=== PATIENT | male | born 1985 | race Caucasian/White ===

== ENCOUNTER 2022-09-29 16:55 | Inpatient (IN) | payer BC, SELFPAY ==
[2022-09-29] VITALS (8 sets, daily range): BP systolic 109–153; BP diastolic 72–100; PULSE 92–115; RESP 19–31; TEMP 36.6–37.3; O2SAT 83–97; BMI 38.7; BMI 37.0
--- NOTE | 2022-09-29 16:51 | ECG_ITS ---
APPROVED REPORT Exam: Resting ECG HR:112 bpm ECG Measurements Heart Rate 112 AXES MA 126 P 7 QRSd 86 QRS -20 QT 311 T 45 QTc 377 Conclusion SINUS TACHYCARDIA ABNORMAL RHYTHM ECG UNCONFIRMED REPORT Electronically signed by : En Russell MD 10/01/2022 14:24:24
--- NOTE | 2022-09-29 17:05 | XR_ITS ---
PROCEDURE INFORMATION: Exam: XR Chest Exam date and time: 09/29/2022 5:33 PM Age: 37 years old Clinical indication: Shortness of breath; Additional info: SOA TECHNIQUE: Imaging protocol: Radiologic exam of the chest. Views: 1 view. COMPARISON: No relevant prior studies available. FINDINGS: Lungs: Focal region of opacification right perihilar region with extension into the right lower lobe. Masslike configuration. Pleural spaces: Unremarkable. No pleural effusion. No pneumothorax. Heart/Mediastinum: Unremarkable. No cardiomegaly. Bones/joints: Unremarkable. IMPRESSION: Right perihilar and lower lobe infiltrate. Could not exclude an underlying mass. Follow-up with computerized tomography with contrast recommended.
[2022-09-29 17:26] LABS: Alanine Aminotransferase 21 U/L (12-78); Albumin Level 4.3 g/dl (3.5-5.0); Albumin/Globulin Ratio 1.4 (1.1-1.8); Alkaline Phosphatase 96 U/L (38-126); Anion Gap 8.6 mEq/L (5-15); Aspartate Amino Transferase 30 U/L (17-59); Bilirubin,Total 0.6 mg/dl (0.2-1.3); Blood Urea Nitrogen 13 mg/dl (9-20); Calcium 8.4 mg/dl (8.4-10.2); Carbon Dioxide 40 mmol/L (22.0-30.0); Chloride 92 mmol/L (98-107); Creatinine Clearance Estimated 215 mL/min (50-200); Estimated Glomerular Filt Rate 108 ml/min (>60); GFR (African American) 130 ML/MIN (>60); Glucose 136 mg/dl (74-100); Potassium 4.6 mmoL/L (3.5-5.1); Sodium 136 mmol/L (136-145); Total Protein,Serum 7.3 g/dl (6.3-8.2)
[2022-09-29 17:31] LABS: D-Dimer 0.94 ug/mL (0.0-0.5)
--- NOTE | 2022-09-29 17:31 | HMH.EDGENADL ---
Discharge Plan Disposition Chief Complaint: Shortness of Breath/Dyspnea Referrals Follow up/Referrals: Provider,Referral, [Primary Care Provider] - See instructions Clinical Impressions Clinical Impression: Acute hypoxemic respiratory failure, Community acquired pneumonia of right middle lobe of lung Discharge ED Provider: Jeferson Lozada General Adult HPI General Chief complaint: Shortness of Breath/Dyspnea Stated complaint: SOA Time Seen by Provider: 09/29/22 17:00 History of Present Illness HPI narrative: This is a 37-year-old male with history of IV drug abuse currently in therapy, cirrhosis presenting with shortness of breath. Per patient and visitor, patient began complaining of chest pain 3 days prior to arrival. Was taking aspirin. Since that time, patient been complaining of progressive shortness of breath. Today, just prior to arrival, patient was altered, not making sense, not redirectable. EMS was called. Patient was brought to the ER for further evaluation. Patient complaining of shortness of breath, mild chest pain, abdominal distention, but denies fevers, chills, diarrhea, constipation, vomiting, or any other concerns. Related Data Allergies Allergy/AdvReac Type Severity Reaction Status Date / Time No Known Allergies Allergy Verified 09/29/22 17:15 [facility] Disclaimer: The information contained in this section may have been updated after the patient was seen, as this information can be updated by other users. Medical History Hepatitis C IVDU (intravenous drug user) Smoker Social History Smoking Status: Never smoker alcohol intake: former current occupational status: unemployed Travel in the last 8 weeks: None ROS Obtained: Yes All systems reviewed & no additional complaints except as documented Physical Exam General General appearance: alert and other (appears ill) Head Head exam: atraumatic, normocephalic and normal inspection Eye Eye exam: Present normal appearance, PERRL and EOMI ENT ENT exam: Present normal exam, normal oropharynx, mucous membranes moist, TM's normal bilaterally and normal external ear exam Neck Neck exam: Present normal inspection, full ROM and trachea midline; Absent meningismus or lymphadenopathy Chest Chest inspection: Present normal inspection and symmetric chest wall rise; Absent tenderness Respiratory Respiratory exam: Present respiratory distress, wheezes and prolonged expiratory phase; Absent normal lung sounds bilaterally Cardiovascular Cardiovascular exam: Present regular rate and normal rhythm; Absent JVD Abdominal Exam Abdominal exam: Present soft, distention and normal bowel sounds; Absent tenderness, guarding or rebound Extremities Exam Extremities exam: Present normal inspection, full ROM and normal capillary refill; Absent calf tenderness Back Exam Back exam: Present normal inspection; Absent tenderness Neurological Exam Neurological exam: Present alert and oriented X3 Psychiatric Psychiatric exam: Present normal affect and normal mood Skin Skin exam: Present warm, dry, intact and normal color Lymphatic Lymphatic Findings: no adenopathy Medical Decision Making Medical Records Medical records reviewed: Yes I reviewed the patient's medical records. [place] Inquiry Pt receiving controlled substance: No Vital Signs: 09/29/22 16:55 09/29/22 18:00 Temperature 99.1 F Temperature Source Oral Pulse Rate 106 H Pulse Rate [Left Radial] 115 H Respiratory Rate 26 H 20 Blood Pressure 128/72 Blood Pressure [Right Arm] 153/100 H Blood Pressure Mean 92 Blood Pressure Mean [Right Arm] 117 Blood Pressure Source [Right Arm] Automatic Cuff Blood Pressure Position [Right Arm] Sitting 02 Sat by Pulse Oximetry 83 L 94 L Oxygen Delivery Method Room Air Lab Data Lab Results 09/29/22 16:56: WBC 23.9 H*, RBC 5.07, Hgb 14.7, Hct 44.9, MCV 88.5, MCH 28.9, MCHC 32.7, RDW 14.1, Plt Count 276, MPV 8.0, Neut % (Auto) 89.2 H, Lymp
[2022-09-29 17:34] LABS: Basophils # 0.1 K/mm3 (0-0.2); Basophils % 0.2 % (0.1-2.0); Eosinophils # 0.2 K/mm3 (0.0-0.4); Eosinophils % 0.7 % (0.1-12.0); Hematocrit 44.9 % (42.0-52.0); Hemoglobin 14.7 g/dL (14.1-18.0); Lymphocytes % 3.9 % (10-50); Mean Corpuscular HGB Conc 32.7 g/dL (31.8-35.4); Mean Corpuscular Hemoglobin 28.9 pg (27.0-31.2); Mean Corpuscular Volume 88.5 fl (80-94); Monocytes # 1.4 K/mm3 (0.1-1.0); Neutrophils # 21.3 K/mm3 (1.8-7.8); Neutrophils % 89.2 % (37.0-80.0); Platelet Count 276 K/mm3 (142-424); Red Blood Count 5.07 M/mm3 (4.60-6.20); Red Cell Distribution Width 14.1 % (11.5-17.5); White Blood Count 23.9 K/mm3 (4.8-10.8)
[2022-09-29 17:37] LABS: Lactic Acid 1.7 mmol/L (0.7-2.1)
[2022-09-29 17:38] LABS: MANUAL DIFFERENTIAL MANUAL DIFFERENTIAL (MANUAL DIFF)
[2022-09-29 17:39] LABS: Troponin I 0.03 ng/ml (0.00-0.034)
--- NOTE | 2022-09-29 17:49 | CT_ITS ---
PROCEDURE INFORMATION: Exam: CTA Chest With Contrast Exam date and time: 09/29/2022 7:03 PM Age: 37 years old Clinical indication: Abnormal findings; Abnormal diagnostic tests; Elevated d-dimer; Patient HX: D-dimer .97; Additional info: Acute SOA and cp TECHNIQUE: Imaging protocol: Computed tomographic angiography of the chest with contrast. 3D rendering (Not supervised by radiologist): MIP and/or 3D reconstructed images were created by the technologist. Radiation optimization: All CT scans at this facility use at least one of these dose optimization techniques: automated exposure control; mA and/or kV adjustment per patient size (includes targeted exams where dose is matched to clinical indication); or iterative reconstruction. Contrast material: ISOVUE 370; Contrast volume: 70 ml; Contrast route: INTRAVENOUS (IV); REPORTING DATA: Count of CT and Cardiac NM exams in prior 12 months: This patient has received 0 known CTs and 0 known cardiac nuclear medicine studies in the 12 months prior to the current study. COMPARISON: CR XR CHEST PORTABLE 09/29/2022 5:33 PM FINDINGS: Pulmonary arteries: There is suboptimal opacification of pulmonary arteries due to contrast bolus timing. Aorta: Unremarkable. No aortic aneurysm. No aortic dissection. Lungs: Patchy regions of slightly nodular ground-glass consolidation involving the right lower lobe, middle lobe and to a lesser extent the right upper lobe. Superimposed right hilar adenopathy with stenosis of the right main bronchus. Findings suboptimally demonstrated. Pleural spaces: Minimal pleural reactive changes posteriorly and laterally in the left lung with small amount of fluid extending into the major fissure. Heart: Unremarkable. No cardiomegaly. No pericardial effusion. Coronary arteries: No evidence of coronary artery calcification. Lymph nodes: Calcified and noncalcified right perihilar lymph nodes. Nonspecific mediastinal lymph nodes and paratracheal in lymph nodes partially visualized. Splenic granuloma Bones/joints: Unremarkable. No acute fracture. Soft tissues: Unremarkable. IMPRESSION: 1. No large or central pulmonary embolus. Evaluation of the peripheral pulmonary arteries is limited. 2. Patchy slightly nodular ground-glass regions of consolidation throughout the right lung most pronounced involving the right lower and middle lobes. Superimposed mediastinal and right hilar lymphadenopathy. Findings may reflect an infectious process such as pneumonia. Atypical pneumonia as well as malignancy should be considered. 3. Mediastinal and right hilar adenopathy. Findings may be secondary to an infectious etiology. Malignancy could not be excluded.
[2022-09-29 17:52] LABS: ABG Base Excess 8.9 mmol/L (-2.4-2.3); ABG HCO3 35.4 mmhg (22.0-26.0); ABG Oxygen Saturation 93 % (90-100); ABG PO2 64.7 mmhg (80-100); ABG TCO2 37.7 mmhg (23-27)
[2022-09-29 17:56] LABS: ABG PCO2 74.3 mmhg (35.0-45.0); Allen's Test Acceptable; Oxygen 3LPM %; Source Left Radial
[2022-09-29 18:24] LABS: Coronavirus 19, PCR Not Detected (NotDetected); Influenza A, PCR Not Detected (NotDetected); Influenza B, PCR Not Detected (NotDetected)
--- NOTE | 2022-09-29 18:29 | PC.NURSE ---
Dr Lozada speaking to Hospitalist
--- NOTE | 2022-09-29 18:57 | PC.NURSE ---
PT GOING TO CT
[2022-09-29 19:09] LABS: Lymphocytes % 2 % (10-50); Monocytes % 9 % (2-9); Neutrophils % 89 % (42-76); Platelet Estimate Normal; Stomatocytes 1+; Total Cells Counted 100
--- NOTE | 2022-09-29 19:55 | EXP.HP ---
History of Present Illness *Admission Date: 09/29/22 *Reason for visit:: Shortness of air, chest pain, confusion *History of present illness: Mr. Jaylen Adan is a 37-year-old male with a past medical history of IVDU reports methamphetamines and opiates, Anxiety Disorder and chronic tobacco abuse. He presented to [facility] due to a 3-day history of chest pain and cough and 1-day history of confusion. Per patient and friend at bedside the patient is in drug rehab, friend reports that he went to see him today and he was lethargic and confused, he was concerned that he had relapsed, so he called 911 and he was brought into the ER for evaluation. In the ER, chest xray showed right perihilar and lower lobe infiltrates. ABG showed pH 7.30, PCO2 74.3, pO2 63.7, SpO2 on 32%. CBC showed WBC of 23.9, CMP was unremarkable. Lactic Acid was 1.7. Covid and Flu were negative. EKG showed Sinus Tachycardia with rate of 112. The patient was admitted with initial impression: Sepsis, Acute Hypoxic and Hypercapnic Respiratory Failure and Community Acquired Pnuemoia. In the ER, the patient was placed on BIPAP, given Rocephin, Azithromycin and Ativan. [facility] Disclaimer: The information contained in this section may have been updated after the patient was seen, as this information can be updated by other users. Medical History Bipolar 1 disorder Depression Hepatitis C Hypertension IVDU (intravenous drug user) Smoker Social History Smoking Status: Never smoker alcohol intake: former current occupational status: unemployed Travel in the last 8 weeks: None Review of Systems Review of Systems Review of systems:: pertinent systems reviewed and negative unless documented below Constitutional Constitutional: Reports system reviewed and no additional complaints, except as documented Eyes Eyes: Reports system reviewed and no additional complaints, except as documented ENT Ears, Nose, Mouth, and Throat: Reports system reviewed and no additional complaints, except as documented *Cardiovascular Cardiovascular: Reports chest pain and Reports dyspnea *Respiratory Respiratory: Reports cough, Reports dyspnea and Reports excessive phlegm production *Gastrointestinal Gastrointestinal: Reports system reviewed and no additional complaints, except as documented *Genitourinary Genitourinary: Reports system reviewed and no additional complaints, except as documented *Musculoskeletal Musculoskeletal: Reports system reviewed and no additional complaints, except as documented Integumentary/Breasts Skin/Breast: Reports system reviewed and no additional complaints, except as documented *Neurologic Neurologic: Reports system reviewed and no additional complaints, except as documented Psychiatric Psychiatric: Reports system reviewed and no additional complaints, except as documented Endocrine Endocrine: Reports system reviewed and no additional complaints, except as documented Hematologic/Lymphatic Hematologic/Lymphatic: Reports system reviewed and no additional complaints, except as documented Allergic/Immunologic Allergic/Immunologic: Reports system reviewed and no additional complaints, except as documented Meds Home Medications and Allergies Home Medications Medication Instructions Recorded Confirmed Type albuterol sulfate 90 mcg/actuation 2 puff inhalation Q4HP PRN 09/29/22 09/30/22 History aerosol inhaler Shortness of air buprenorphine 2 mg-naloxone 0.5 mg 2 tab sublingual DAILY WITHDRAWAL 09/29/22 09/30/22 History sublingual tablet PREVENTION buprenorphine 8 mg-naloxone 2 mg 2 tab sublingual DAILY WITHDRAWAL 09/29/22 09/30/22 History sublingual tablet PREVENTION carvedilol 3.125 mg tablet 3.125 mg PO BID High blood pressure 09/29/22 09/30/22 History clonazepam 1 mg tablet 2 mg PO BID Anxiety 09/29/22 09/30/22 History folic acid 1 mg tablet 1 mg PO DAILY Supplem
--- NOTE | 2022-09-29 20:39 | PC.NURSE ---
Report called to [facility] for stepdown unit-- Patient requesting his Suboxone and Klonopin which he takes at home. I explained to patient the inpatient provider will need to complete a med rec with him and then they would be able to order his home medications.
[2022-09-29 20:41] LABS: Troponin I 0.03 ng/ml (0.00-0.034)
--- NOTE | 2022-09-29 21:03 | PC.NURSE ---
Pt. arrived to floor by wheelchair at 21:00.
[2022-09-29 23:02] LABS: ABG Base Excess 10.6 mmol/L (-2.4-2.3); ABG HCO3 36.5 mmhg (22.0-26.0); ABG Oxygen Saturation 95 % (90-100); ABG PH 7.33 mmol/L (7.35-7.45); ABG PO2 70.6 mmhg (80-100); ABG TCO2 38.7 mmhg (23-27)
[2022-09-29 23:04] LABS: Oxygen 40 %
[2022-09-29 23:05] LABS: Allen's Test Acceptable; Source Left Radial
[2022-09-29 23:07] LABS: ABG PCO2 70.5 mmhg (35.0-45.0)
[2022-09-29 23:33] LABS: Troponin I 0.02 ng/ml (0.00-0.034)
[2022-09-30] VITALS (13 sets, daily range): BP systolic 91–145; BP diastolic 68–97; PULSE 77–96; RESP 20–27; TEMP 36.7–37.1; O2SAT 82–97; BMI 37.1
--- NOTE | 2022-09-30 01:17 | PC.NURSE ---
2 inhalers locked in physical medicine specialist room upon admission. pt denies having any other home medications
[2022-09-30 05:20] LABS: Barbiturates Screen,Urine Negative ng/ml (<200)
[2022-09-30 05:21] LABS: Benzodiazepines Screen,Urine Positive ng/ml (<200)
[2022-09-30 05:22] LABS: Amphetamine/Metha Screen,Urine Negative ng/ml (<1000); Cannabinoid Screen,Urine Negative ng/ml (<50)
[2022-09-30 05:23] LABS: Cocaine Screen,Urine Negative ng/ml (<300)
[2022-09-30 05:24] LABS: Methadone Screen,Urine Negative ng/ml (<300); Opiate Screen,Urine Negative ng/ml (<300)
[2022-09-30 05:25] LABS: Phencyclidine Screen,Urine Negative ng/ml (<25)
[2022-09-30 06:03] LABS: ABG Base Excess 9.4 mmol/L (-2.4-2.3); ABG HCO3 35.6 mmhg (22.0-26.0); ABG Oxygen Saturation 96 % (90-100); ABG PH 7.32 mmol/L (7.35-7.45); ABG PO2 78.2 mmhg (80-100); ABG TCO2 37.7 mmhg (23-27)
[2022-09-30 06:04] LABS: Allen's Test Acceptable; Source Left Radial; Vent Rate 20
[2022-09-30 06:06] LABS: ABG PCO2 71.1 mmhg (35.0-45.0)
[2022-09-30 06:16] LABS: Basophils % 0.2 % (0.1-2.0); Eosinophils # 0.1 K/mm3 (0.0-0.4); Eosinophils % 0.5 % (0.1-12.0); Hematocrit 40.9 % (42.0-52.0); Hemoglobin 13.3 g/dL (14.1-18.0); Lymphocytes % 9.8 % (10-50); Mean Corpuscular HGB Conc 32.4 g/dL (31.8-35.4); Mean Corpuscular Hemoglobin 28.5 pg (27.0-31.2); Mean Corpuscular Volume 87.8 fl (80-94); Mean Platelet Volume 7.7 fl (7.4-10.4); Monocytes % 5.2 % (1.7-9.3); Neutrophils # 16.7 K/mm3 (1.8-7.8); Neutrophils % 84.1 % (37.0-80.0); Platelet Count 238 K/mm3 (142-424); Red Blood Count 4.66 M/mm3 (4.60-6.20); White Blood Count 19.9 K/mm3 (4.8-10.8)
[2022-09-30 06:21] LABS: MANUAL DIFFERENTIAL MANUAL DIFFERENTIAL (MANUAL DIFF)
[2022-09-30 06:27] LABS: Chloride 95 mmol/L (98-107)
[2022-09-30 06:28] LABS: Potassium 3.9 mmoL/L (3.5-5.1); Sodium 135 mmol/L (136-145)
[2022-09-30 06:30] LABS: Alanine Aminotransferase 16 U/L (12-78); Albumin Level 3.7 g/dl (3.5-5.0); Albumin/Globulin Ratio 1.3 (1.1-1.8); Alkaline Phosphatase 78 U/L (38-126); Aspartate Amino Transferase 24 U/L (17-59); Bilirubin,Total 0.7 mg/dl (0.2-1.3); Blood Urea Nitrogen 11 mg/dl (9-20); Calcium 8.4 mg/dl (8.4-10.2); Creatinine Clearance Estimated 236 mL/min (50-200); Estimated Glomerular Filt Rate 126 ml/min (>60); GFR (African American) 152 ML/MIN (>60); Globulin 2.8 g/dL (1.3-3.2); Glucose 103 mg/dl (74-100); Total Protein,Serum 6.5 g/dl (6.3-8.2)
[2022-09-30 06:31] LABS: Magnesium 2.2 mg/dl (1.6-2.3)
[2022-09-30 06:38] LABS: Anion Gap 7.9 mEq/L (5-15); Carbon Dioxide 36 mmol/L (22.0-30.0)
--- NOTE | 2022-09-30 06:45 | PC.NURSE ---
ABG results reported to Thaddeus Lane NP, BIPAP settings adjusted by RT.. 20/6 FIO2 45% RR 26.
[2022-09-30 07:53] LABS: Bordetella Pertussis Not Detected (NotDetected); Chlamydophila Pneumoniae, PCR Not Detected (NotDetected); Coronavirus 19, PCR Not Detected (NotDetected); Coronavirus 229E Not Detected (NotDetected); Coronavirus NL63 Not Detected (NotDetected); Coronavirus OC43 Not Detected (NotDetected); Coronovirus HKU1,PCR Not Detected (NotDetected); Human Metapneumovirus Not Detected (NotDetected); Influenza A, PCR Not Detected (NotDetected); Influenza AH1, 2009 Not Detected (NotDetected); Influenza AH1, PCR Not Detected (NotDetected); Influenza AH3,PCR Not Detected (NotDetected); Influenza B, PCR Not Detected (NotDetected); Mycoplasma Pneumoniae, PCR Not Detected (NotDetected); Parainfluenza 1, PCR Not Detected (NotDetected); Parainfluenza 2, PCR Not Detected (NotDetected); Parainfluenza 3, PCR Not Detected (NotDetected); Parainfluenza 4, PCR Not Detected (NotDetected); Respiratory Syncytial Virus Not Detected (NotDetected); Rhinovirus/Enterovirus Not Detected (NotDetected)
[2022-09-30 08:19] LABS: Lymphocytes % 11 % (10-50); Monocytes % 6 % (2-9); Neutrophils % 83 % (42-76); Platelet Estimate Normal; RBC Morphology Normal; Total Cells Counted 100
--- NOTE | 2022-09-30 08:41 | HMH.PHAINT1 ---
Pharmacy Intervention Comments: Reconciled patient's home medications using pharmacy fill history and patient interview.
[2022-09-30 09:38] LABS: Adenovirus,PCR Detected (NotDetected)
--- NOTE | 2022-09-30 09:38 | EXP.PULM.CON ---
History of Present Illness History of present illness: Mr. Adan is a 37-year-old male history of IV drug abuse presented with 3-day history of worsening chest pain cough and confusion apparently was called for further evaluation. [facility] Disclaimer: The information contained in this section may have been updated after the patient was seen, as this information can be updated by other users. Medical History Bipolar 1 disorder Depression Hepatitis C Hypertension IVDU (intravenous drug user) Smoker Social History Smoking Status: Never smoker alcohol intake: former current occupational status: unemployed Travel in the last 8 weeks: None Review of Systems Constitutional Constitutional: Reports anorexia and Reports body ache(s) Eyes Eyes: Denies eye discharge, Denies dry eyes, Denies irritation and Denies itchy eyes ENT Ears, Nose, Mouth, and Throat: Denies epistaxis, Denies facial pain, Denies lip swelling and Denies throat swelling *Cardiovascular Cardiovascular: Reports dyspnea and Reports dyspnea on exertion *Respiratory Respiratory: Reports chest congestion, Reports cough, Reports dyspnea, Reports dyspnea on exertion, Reports excessive phlegm production and Denies wheezing *Gastrointestinal Gastrointestinal: Denies abdominal pain, Denies belching and Denies cramping *Musculoskeletal Musculoskeletal: Reports back pain, Reports myalgias and Reports other (No small joint swelling or Pain) *Neurologic Neurologic: Reports system reviewed and no additional complaints, except as documented Psychiatric Psychiatric: Denies homicidal ideation and Denies suicidal ideation Endocrine Endocrine: Denies heat intolerance Hematologic/Lymphatic Hematologic/Lymphatic: Denies easy bleeding and Denies lymphadenopathy Allergic/Immunologic Allergic/Immunologic: Denies itchy eyes, Denies lip swelling, Denies throat swelling and Denies wheezing Pulmonology Exam Inpatient Vital signs and Labs for Last 24 Hours: Temp Pulse Resp BP Pulse Ox FiO2 98.7 F 78 26 H 91/68 L 97 45 09/30/22 08:00 09/30/22 08:00 09/30/22 08:00 09/30/22 08:00 09/30/22 08:00 09/30/22 08:00 Laboratory Results - last 24 hr 09/29/22 16:56: WBC 23.9 H*, RBC 5.07, Hgb 14.7, Hct 44.9, MCV 88.5, MCH 28.9, MCHC 32.7, RDW 14.1, Plt Count 276, MPV 8.0, Neut % (Auto) 89.2 H, Lymph % (Auto) 3.9 L, [place] % (Auto) 6.0, Eos % (Auto) 0.7, Baso % (Auto) 0.2, Neut # (Auto) 21.3 H, Lymph # (Auto) 1.0, [place] # (Auto) 1.4 H, Eos # (Auto) 0.2, Baso # (Auto) 0.1, Total Counted 100, Neutrophils % (Manual) 89 H, Lymphocytes % (Manual) 2 L, Monocytes % (Manual) 9, Platelet Estimate Normal, Stomatocytes 1+ 09/29/22 16:56: Sodium 136, Potassium 4.6, Chloride 92 L, Carbon Dioxide 40 H, Anion Gap 8.6, BUN 13, Creatinine 0.80, Estimated Creat Clear 215, Estimated GFR 108, Est GFR ( Amer) 130, Glucose 136 H, Calcium 8.4, Total Bilirubin 0.6, AST 30, ALT 21, Alkaline Phosphatase 96, Troponin I 0.03, Total Protein 7.3, Albumin 4.3, Globulin 3.0, Albumin/Globulin Ratio 1.4 09/29/22 16:56: D-Dimer 0.94 H 09/29/22 16:57: Lactate 1.7 09/29/22 17:05: Specimen Source Left radial, O2 % 3lpm, ABG pH 7.30 L, ABG pCO2 74.3 H, ABG pO2 64.7 L, ABG HCO3 35.4 H, ABG Total CO2 37.7 H, ABG O2 Saturation 93, ABG Base Excess 8.9 H, Franck Test Acceptable 09/29/22 18:10: SARS-CoV-2 (PCR) Not detected, Influenza A Untype (PCR) Not detected, Influenza Type B (PCR) Not detected 09/29/22 20:10: Troponin I 0.03 09/29/22 23:00: Specimen Source Left radial, O2 % 40, ABG pH 7.33 L, ABG pCO2 70.5 H, ABG pO2 70.6 L, ABG HCO3 36.5 H, ABG Total CO2 38.7 H, ABG O2 Saturation 95, ABG Base Excess 10.6 H, Franck Test Acceptable 09/29/22 23:07: Troponin I 0.02 09/30/22 03:25: Urine Opiates Screen Negative, Urine Methadone Screen Negative, Ur Barbituates Screen Negative, Ur Phencyclidine Scrn Negative, Ur Amphetamines Screen Negative, U Benzodiazepines Scrn Positive H, Urine Cocain
--- NOTE | 2022-09-30 10:45 | PC.NURSE ---
ambulated twice around floor with portable o2
--- NOTE | 2022-09-30 11:10 | PC.NURSE ---
Pt is currently sitting on the side of his bed at this time. Has been resistive to care this morning. Pt has threatened to leave AMA multiple times. MD's aware. Pt has been educated by this nurse, Dr. Wilks and Dr. Victor on the risk factors if pt leaves. Pt refused to keep Bipap on. Is currently on 6L O2 NC at this time. Has ambulated in hallway with stand by assist. Nicotine patch placed on pt. Had a sandwhich for a snack. Significant other is at bedside. Pt and her have been arguing. Call light within reach.
--- NOTE | 2022-09-30 14:15 | PC.NURSE ---
Pt left AMA after being educated multiple times by MDs and nurses, the risks involved in leaving.
--- NOTE | 2022-09-30 14:23 | EXP.DC.SUM ---
General Admission date:: 09/29/22 Discharge date: 09/30/22 HPI HPI HPI: Mr. Jaylen Adan is a 37-year-old male with a past medical history of IVDU reports methamphetamines and opiates, Anxiety Disorder and chronic tobacco abuse. He presented to [facility] due to a 3-day history of chest pain and cough and 1-day history of confusion. Per patient and friend at bedside the patient is in drug rehab, friend reports that he went to see him today and he was lethargic and confused, he was concerned that he had relapsed, so he called 911 and he was brought into the ER for evaluation. In the ER, chest xray showed right perihilar and lower lobe infiltrates. ABG showed pH 7.30, PCO2 74.3, pO2 63.7, SpO2 on 32%. CBC showed WBC of 23.9, CMP was unremarkable. Lactic Acid was 1.7. Covid and Flu were negative. EKG showed Sinus Tachycardia with rate of 112. The patient was admitted with initial impression: Sepsis, Acute Hypoxic and Hypercapnic Respiratory Failure and Community Acquired Pnuemoia. In the ER, the patient was placed on BIPAP, given Rocephin, Azithromycin and Ativan. Hospital Course Hospital Course Hospital Course: 37-year-old male with history of iv drug use, chronic tobacco abuse, anxiety disorder presents with 3-day history of cough and chest pain and 1-day history of confusion. Patient started feeling better. Became more insistent on being able to leave and go check on his car, lock his car . He and girlfriend who are in the room or having verbal disagreement. He became adamant about leaving AGAINST MEDICAL ADVICE. Was counseled on risks to his health and life given severity of pneumonia and continued need for oxygen. Patient still adamant about leaving and left AMA. - Sepsis (POA) -Hypoxemic and hypercarbic respiratory failure -Community-acquired pneumonia Initially started on broad-spectrum antibiotics and treated with BiPAP for hypercapnia. Patient was transition to nasal cannula oxygen by morning. Pulmonology consulted. Appreciate their recommendations during admission. Patient initial on Rocephin and azithromycin. Switched to Zosyn. At discharge, sent Levaquin and clindamycin after discussion with pulmonology so the patient was not sent out even without some type of coverage for his pneumonia. Sputum not obtained prior to discharge. Was still requiring 6 L nasal cannula prior to leaving AGAINST MEDICAL ADVICE. - History of IV drug abuse Check urine drug screen, only positive for benzodiazepines. Continue home Suboxone dosage. - Anxiety Disorder: Continued home Klonopin dose -Tobacco dependence: Treated with nicotine replacement patch during admission. Patient left medical advice however given extent of pneumonia, felt obligation to empirically treat (or at least send meds.) Levofloxacin and clindamycin for 10-day course both sent to patient's pharmacy at [facility] in [place]. Informed him that we are sending medications in hopes that he will pick them up. Exam Data for Last 24 hours Vital signs and Labs for Last 24 Hours: Temp Pulse Resp BP Pulse Ox FiO2 98.4 F 92 H 24 141/81 H 90 L 45 09/30/22 12:00 09/30/22 12:00 09/30/22 12:00 09/30/22 12:00 09/30/22 12:00 09/30/22 08:00 Laboratory Results - last 24 hr 09/29/22 16:56: WBC 23.9 H*, RBC 5.07, Hgb 14.7, Hct 44.9, MCV 88.5, MCH 28.9, MCHC 32.7, RDW 14.1, Plt Count 276, MPV 8.0, Neut % (Auto) 89.2 H, Lymph % (Auto) 3.9 L, [place] % (Auto) 6.0, Eos % (Auto) 0.7, Baso % (Auto) 0.2, Neut # (Auto) 21.3 H, Lymph # (Auto) 1.0, [place] # (Auto) 1.4 H, Eos # (Auto) 0.2, Baso # (Auto) 0.1, Total Counted 100, Neutrophils % (Manual) 89 H, Lymphocytes % (Manual) 2 L, Monocytes % (Manual) 9, Platelet Estimate Normal, Stomatocytes 1+ 09/29/22 16:56: Sodium 136, Potassium 4.6, Chloride 92 L, Carbon Dioxide 40 H, Anion Gap 8.6, BUN 13, Creatinine 0.80, Estimated Creat Clear 215, Estimated GFR 108, Est GFR ( Amer) 130, Glucose 136 H, Calc
--- NOTE | 2022-09-30 14:41 | PC.NURSE ---
Attempted to call pt about home inhalers that he left behind in room. No answer. Voicemail not set up.
[2022-10-04 17:26] LABS: Body Fluid Culture, Sterile Not indicated. (.); Organism ID Not indicated. (.); Specimen Source Urine (.); Streptococcus pneumoniae Ag Negative (Negative)
[2022-10-05 11:57] LABS: Legionella pneumophila Urinary Negative (Negative)
== END 2022-09-30 14:15 | disposition left against medical advice (07) | DRG 871 ==
LOC: ER 17:37 → 2ND 20:24
PROVIDERS: Nurse Practitioner Family; Admitting Provider Internal Medicine Adolescent Medicine; Emergency Provider Emergency Medicine; Visit Provider Internal Medicine Adolescent Medicine
DX: A41.9 Sepsis, unspecified organism (principal); J18.9 Pneumonia, unspecified organism; J96.01 Acute respiratory failure with hypoxia; J96.02 Acute respiratory failure with hypercapnia; F17.210 Nicotine dependence, cigarettes, uncomplicated; Z79.899 Other long term (current) drug therapy; Z79.891 Long term (current) use of opiate analgesic; K74.60 Unspecified cirrhosis of liver; B19.20 Unspecified viral hepatitis C without hepatic coma; F31.9 Bipolar disorder, unspecified; F19.91 Other psychoactive substance use, unspecified, in remission; F41.9 Anxiety disorder, unspecified; Z71.6 Tobacco abuse counseling
CPT/HCPCS: 36415; 71045; 71275; 80053; 80305; 82803; 83605; 83735; 84484; 85007; 85025; 85378; 87040; 87581; 87632; 87798; 87899; 93005; 94640; 94760; 99291; C9803; J0456; J0574; J0696; J2543; Q9967; U0003; U0005

== ENCOUNTER 2022-09-30 23:40 | Emergency (ER) | payer BC, SELFPAY ==
[2022-09-30 23:40] VITALS: BP 158/94; PULSE 104; RESP 23; TEMP 36.7; O2SAT 86; BMI 31.5
[2022-09-30 23:48] VITALS: PULSE 86; RESP 23; O2SAT 96
--- NOTE | 2022-09-30 23:49 | ECG_ITS ---
APPROVED REPORT Exam: Resting ECG HR:116 bpm ECG Measurements Heart Rate 116 AXES AK 120 P 60 QRSd 89 QRS 4 QT 310 T 60 QTc 379 Conclusion SINUS TACHYCARDIA POSSIBLE LEFT ATRIAL ENLARGEMENT [-0.1mV P-WAVE IN V1/V2] ABNORMAL RHYTHM ECG UNCONFIRMED REPORT Electronically signed by : En Russell MD 10/01/2022 14:19:50
--- NOTE | 2022-10-01 | XR_ITS ---
PROCEDURE INFORMATION: Exam: XR Chest Exam date and time: 10/01/2022 12:03 AM Age: 37 years old Clinical indication: Shortness of breath; Additional info: Shortness of air TECHNIQUE: Imaging protocol: Radiologic exam of the chest. Views: 2 views. COMPARISON: CR XR CHEST PORTABLE 09/29/2022 5:33 PM FINDINGS: Lungs: Patchy opacification right perihilar and lower lobe region Pleural spaces: Unremarkable. No pleural effusion. No pneumothorax. Heart/Mediastinum: Mild cardiomegaly. Bones/joints: Unremarkable. IMPRESSION: Patchy opacification right perihilar and lower lobe region; similar to CT from 09/29/2022 showing ground-glass regions of consolidation.
[2022-10-01 00:02] LABS: ABG Base Excess 10.7 mmol/L (-2.4-2.3); ABG HCO3 36.2 mmhg (22.0-26.0); ABG Oxygen Saturation 95 % (90-100); ABG PH 7.36 mmol/L (7.35-7.45); ABG PO2 71.9 mmhg (80-100); ABG TCO2 38.2 mmhg (23-27)
[2022-10-01 00:03] LABS: Allen's Test Acceptable; Oxygen 2 LPM %; Source Left Radial
[2022-10-01 00:05] LABS: ABG PCO2 66.1 mmhg (35.0-45.0)
[2022-10-01 00:06] LABS: Basophils % 0.2 % (0.1-2.0); Eosinophils # 0.1 K/mm3 (0.0-0.4); Eosinophils % 0.6 % (0.1-12.0); Hematocrit 41.7 % (42.0-52.0); Hemoglobin 12.9 g/dL (14.1-18.0); Lymphocytes # 2.4 K/mm3 (0.7-4.5); MANUAL DIFFERENTIAL MANUAL DIFFERENTIAL (MANUAL DIFF); Mean Corpuscular Volume 90.3 fl (80-94); Mean Platelet Volume 7.4 fl (7.4-10.4); Monocytes # 0.8 K/mm3 (0.1-1.0); Monocytes % 5.4 % (1.7-9.3); Neutrophils # 11.7 K/mm3 (1.8-7.8); Neutrophils % 77.8 % (37.0-80.0); Platelet Count 253 K/mm3 (142-424); Red Blood Count 4.62 M/mm3 (4.60-6.20); Red Cell Distribution Width 14.2 % (11.5-17.5); White Blood Count 15.1 K/mm3 (4.8-10.8)
[2022-10-01 00:12] LABS: Alanine Aminotransferase 17 U/L (12-78); Albumin Level 4.1 g/dl (3.5-5.0); Albumin/Globulin Ratio 1.3 (1.1-1.8); Alkaline Phosphatase 85 U/L (38-126); Anion Gap 8.3 mEq/L (5-15); Aspartate Amino Transferase 27 U/L (17-59); Bilirubin,Total 0.4 mg/dl (0.2-1.3); Blood Urea Nitrogen 14 mg/dl (9-20); Calcium 8.5 mg/dl (8.4-10.2); Carbon Dioxide 38 mmol/L (22.0-30.0); Chloride 98 mmol/L (98-107); Creatinine Clearance Estimated 156 mL/min (50-200); Estimated Glomerular Filt Rate 94 ml/min (>60); GFR (African American) 114 ML/MIN (>60); Globulin 3.1 g/dL (1.3-3.2); Glucose 129 mg/dl (74-100); Potassium 4.3 mmoL/L (3.5-5.1); Sodium 140 mmol/L (136-145); Total Protein,Serum 7.2 g/dl (6.3-8.2)
[2022-10-01 00:16] LABS: Coronavirus 19, PCR Not Detected (NotDetected); Influenza A, PCR Not Detected (NotDetected); Influenza B, PCR Not Detected (NotDetected)
[2022-10-01 00:17] LABS: C-Reactive Protein 94.2 mg/L (0-4)
--- NOTE | 2022-10-01 00:17 | PC.NURSE ---
pt back from xray
[2022-10-01 00:25] LABS: Lactic Acid 0.7 mmol/L (0.7-2.1)
[2022-10-01 00:27] LABS: NT Pro Brain Natriuretic Pep. 31.4 pg/mL (0-125)
[2022-10-01 00:31] LABS: Procalcitonin 0.314 ng/mL (0.0-2.0)
[2022-10-01 00:36] LABS: Eosinophils % 2 % (0-3); Lymphocytes % 16 % (10-50); Monocytes % 4 % (2-9); Neutrophils % 78 % (42-76); RBC Morphology Normal; Total Cells Counted 100
[2022-10-01 00:37] LABS: Platelet Estimate Normal
[2022-10-01 00:43] LABS: Troponin I < 0.01 ng/ml (0.00-0.034)
[2022-10-01 00:49] LABS: Erythrocyte Sedimentation Rate 18 mm/hr (0-15)
--- NOTE | 2022-10-01 00:55 | PC.NURSE ---
Pt complains that his s/o is in the parking lot and isn't able to get into the hospital and requested to go look for his s/o. We advised the patient that he would have to sign out ama if he were to leave the er for any reason. Two music education director's searched the parking lot for the girlfriend but was unable to find her. Of note, patients girlfriend arrived to the ED while staff was searching the front of the hospital for her (where the patient stated that she was at). S/O is currently at bedside.
--- NOTE | 2022-10-01 01:33 | [facility].EDSOB ---
Discharge Plan Disposition Patient Disposition: Left Against Medical Advice Chief Complaint: Shortness of Breath/Dyspnea Prescriptions Prescriptions: No Action prazosin 1 mg capsule 1 mg PO DAILY clonazepam 1 mg tablet 2 mg PO BID carvedilol 3.125 mg tablet 3.125 mg PO BID levothyroxine 125 mcg tablet 125 mcg PO DAILY folic acid 1 mg tablet 1 mg PO DAILY albuterol sulfate 90 mcg/actuation HFA aerosol inhaler 2 puff INHALATION Q4HP PRN (Reason: Shortness of air) buprenorphine-naloxone 2-0.5 mg tablet, sublingual 2 tab SUBLINGUAL DAILY Rx Instructions: TAKES 2 SUBOXONE 8/2 MG TABS AND 2 SUBOXONE 2/0.5 MG TABS DAILY. buprenorphine-naloxone 8-2 mg tablet, sublingual 2 tab SUBLINGUAL DAILY Rx Instructions: TAKES 2 SUBOXONE 8/2 MG TABS AND 2 SUBOXONE 2/0.5 MG TABS DAILY. thiamine mononitrate (vit B1) [Vitamin B-1 (mononitrate)] 100 mg tablet 100 mg PO DAILY gabapentin 600 mg tablet 600 mg PO TID olanzapine 10 mg tablet 10 mg PO HS ibuprofen 400 mg tablet 400 mg PO TID melatonin 5 mg tablet 10 mg PO HS cholecalciferol (vitamin D3) 50 mcg (2,000 unit) tablet 50 mcg PO DAILY vilazodone 20 mg tablet 20 mg PO DAILY multivitamin with folic acid [Tab-A-Jahaira] 400 mcg tablet 1 tab PO DAILY levofloxacin 750 mg tablet 750 mg PO DAILY Qty: 10 0RF clindamycin HCl 300 mg capsule 300 mg PO TID 10 Days Qty: 30 0RF Referrals Follow up/Referrals: Provider,Referral, MD [Primary Care Provider] - See instructions Clinical Impressions Clinical Impression: Community acquired pneumonia, Acute hypoxemic respiratory failure Instructions Patient Instructions: DI for Shortness of Breath Discharge ED Provider: Fiordaliza (ED)Arthur Resp/SOB HPI General Chief Complaint: Shortness of Breath/Dyspnea Stated Complaint: SOA Time Seen by Provider: 10/01/22 01:41 Mode of Arrival: Wheelchair Source of Information: Patient, Significant Other and Medical Record Limitations: No Limitations Description of Symptoms (Recalled from ER Triage Doc. by RN): 37 M presents for shortness of air. He was seen here yesterday and admitted for acute respiratory failure and sepsis. He signed out AMA from this hospital earlier today. He presented back here because he knew he needed to come back, but he had stuff to take care of first. NAD on arrival History of Present Illness pt with sob and wheezing - pt with recent admit and left ama - pt with continued sob - MD Complaint: shortness of breath and cough Onset (ago): day(s) Context: recent illness and medication noncompliance Severity: similar to previous episodes Consistency/Duration: intermittent Associated symptoms: denies other symptoms Treatment prior to arrival: none Related Data Home oxygen amount: none Home Medications Medication Instructions Recorded Confirmed albuterol sulfate 90 mcg/actuation 2 puff inhalation Q4HP PRN 09/29/22 09/30/22 aerosol inhaler Shortness of air buprenorphine 2 mg-naloxone 0.5 mg 2 tab sublingual DAILY WITHDRAWAL 09/29/22 09/30/22 sublingual tablet PREVENTION buprenorphine 8 mg-naloxone 2 mg 2 tab sublingual DAILY WITHDRAWAL 09/29/22 09/30/22 sublingual tablet PREVENTION carvedilol 3.125 mg tablet 3.125 mg PO BID High blood pressure 09/29/22 09/30/22 clonazepam 1 mg tablet 2 mg PO BID Anxiety 09/29/22 09/30/22 folic acid 1 mg tablet 1 mg PO DAILY Supplement 09/29/22 09/29/22 levothyroxine 125 mcg tablet 125 mcg PO DAILY Thyroid 09/29/22 09/29/22 prazosin 1 mg capsule 1 mg PO DAILY nightmares 09/29/22 09/29/22 thiamine mononitrate (vit B1) 100 100 mg PO DAILY Supplement 09/29/22 09/29/22 mg tablet (Vitamin B-1 (mononitrate)) cholecalciferol (vitamin D3) 50 50 mcg PO DAILY Supplement 09/30/22 09/30/22 mcg (2,000 unit) tablet gabapentin 600 mg tablet 600 mg PO TID Pain 09/30/22 09/30/22 ibuprofen 400 mg tablet 400 mg PO TID Pain 09/30
--- NOTE | 2022-10-01 01:40 | PC.NURSE ---
MD at bedside, questioned patient if he was willing to stay. Patient states that he would stay but he needs to go to his car and house and take care of a few things. MD notified patient that that would not be possible. That patient would have to sign out ama.
[2022-10-01 02:08] VITALS: PULSE 110; PULSE 112
[2022-10-01 02:10] VITALS: BP 160/78; PULSE 100; RESP 16; TEMP 36.6; O2SAT 82
== END 2022-10-01 02:00 | disposition left against medical advice (07) ==
PROVIDERS: Emergency Provider Emergency Medicine
DX: J96.01 Acute respiratory failure with hypoxia (principal); J18.9 Pneumonia, unspecified organism; F17.200 Nicotine dependence, unspecified, uncomplicated
CPT/HCPCS: 71046; 80053; 82803; 83605; 83880; 84145; 84484; 85007; 85025; 85651; 86140; 93005; 99285; C9803; U0003; U0005